=== PATIENT | female | born 1965 | race Caucasian/White ===

== ENCOUNTER 2018-06-13 14:38 | Emergency (ER) | payer OTHER ==
[~2018-06-13] VITALS: Ht 165.1 cm; Wt 60.0 kg
[2018-06-13 14:40] VITALS: BP 108/74
[2018-06-13] MEDS ORDERED: LAMO100T5 PO (14:51)
[2018-06-13] MEDS ORDERED: SERT25TA PO (14:51)
[2018-06-13] MEDS ORDERED: ALPR0.25 PO (14:51)
== END 2018-06-13 15:03 | disposition home or self-care (01) ==
LOC: ED 14:59
DX: F41.1 Generalized anxiety disorder (principal); R55 Syncope and collapse
CPT/HCPCS: 93005; 99283